=== PATIENT | female | born 1975 | race Caucasian/White ===

== ENCOUNTER 2020-11-20 15:30 | Emergency (ER) | payer OTHER, SELFPAY ==
[2020-11-20 15:38] VITALS: BP 145/106; PULSE 95; RESP 23; TEMP 36.7; O2SAT 100
--- NOTE | 2020-11-20 15:44 | ECG_ITS ---
Measurements Intervals [place] Rate: 88 P: 71 NC: 132 QRS: 75 QRSD: 86 T: 71 QT: 373 QTc: 452 Interpretive Statements SINUS RHYTHM BORDERLINE ST ABNORMALITY- INF/LAT LEADS BASELINE WANDER- V2 BORDERLINE ECG Electronically Signed On 11-20-2020 16:43:07 CDT by Pollo Whyte D.O.
--- NOTE | 2020-11-20 16:22 | ED.GENADULT ---
HPI - General Adult General Chief complaint: Recheck/Abnormal Lab/Rx Stated complaint: low potassium Time Seen by Provider: 11/20/20 15:36 Source: patient History of Present Illness HPI narrative: Patient is a 45 y/o female complaining of low potassium. She states that her potassium was 2.6 based on outpatient lab done earlier today. She was instructed by her jackerman to come to ED for evaluation. There is no known factors making it better or worse. She states that her thyroid medication was recently changed from Synthroid to Levoxyl and back to Synthroid. She also has been losing weight. Related Data Allergies Allergy/AdvReac Type Severity Reaction Status Date / Time artificial food coloring Allergy Rash Uncoded 11/20/20 15:45 Review of Systems Constitutional: Constitutional: Denies chills, Denies fever(s), Denies headache(s), Denies weakness and Reports weight loss Eyes: Eyes: Denies blurry vision ENT: Denies headache(s) and Denies neck pain Cardiovascular: Cardiovascular: Denies chest pain and Denies dyspnea Respiratory: Respiratory: Denies cough and Denies dyspnea Gastrointestinal: Gastrointestinal: Denies abdominal pain, Denies diarrhea, Denies nausea and Denies vomiting Genitourinary: Genitourinary: Denies hematuria and Denies dysuria Musculoskeletal: Musculoskeletal: Denies back pain and Denies neck pain Neurologic: Denies headache(s) and Denies weakness [facility] Social History Social History Gender identity (if verbalized by the patient): Female Exam Const: General: no acute distress and well developed Orientation/consciousness: oriented to person, oriented to place, oriented to time and patient oriented x3 HENMT: Head: normocephalic Ears: external ears normal General nose exam: Normal external nose present Eyes: General: appearance normal, both eyes and all related structures Conjunctivae: conjunctivae normal Neck: Neck: normal visual inspection and full ROM Chest: Chest palpation & inspection: normal inspection of the chest and no tenderness Resp: Effort & Inspection: normal respiratory effort Auscultation: clear to auscultation bilaterally Cardio: Rate: regular rate Rhythm: regular rhythm GI: GI Palp: No abdominal tenderness and Yes Soft to palpation Skin: General skin exam: normal color and turgor normal Neuro: General: oriented to person, oriented to place, oriented to time and patient oriented x3 Cognition (Neuro): normal cognition Extrem: General: normal to inspection, full ROM and no pedal edema Psych: Appearance: grossly normal Mental Status: mental status grossly normal Affect: normal affect Course Vital Signs Vital signs: Vital Signs Temperature 36.7 C 11/20/20 15:38 Pulse Rate 95 11/20/20 15:38 Respiratory Rate 23 H 11/20/20 15:38 Blood Pressure 145/106 H 11/20/20 15:38 Pulse Oximetry 100 11/20/20 15:38 Temperature 36.7 C 11/20/20 15:38 Pulse Rate 102 H 11/20/20 20:57 Respiratory Rate 22 H 11/20/20 20:57 Blood Pressure 124/88 11/20/20 20:57 Pulse Oximetry 99 11/20/20 20:57 Medical Decision Making Vital Signs Vital Signs: Vital Signs Temperature 36.7 C 11/20/20 15:38 Pulse Rate 95 11/20/20 15:38 Respiratory Rate 23 H 11/20/20 15:38 Blood Pressure 145/106 H 11/20/20 15:38 Pulse Oximetry 100 11/20/20 15:38 Temperature 36.7 C 11/20/20 15:38 Pulse Rate 102 H 11/20/20 20:57 Respiratory Rate 22 H 11/20/20 20:57 Blood Pressure 124/88 11/20/20 20:57 Pulse Oximetry 99 11/20/20 20:57 Lab Data Result diagrams: 11/20/20 16:22 11/20/20 19:14 Labs: Lab Results 11/20/20 11/20/20 11/20/20 Range/Units 16:22 16:22 16:22 WBC 6.2 (4.5-10.0) K/mm3 RBC 4.31 (4.2-5.4) M/mm3 Hgb 14.5 (12.0-15.0) g/dL Hct 40.3 (37.0-47.0) % MCV 93.5 (80-100) fl MCH 33.6 (26-34) pg MCHC 36.0 (32-36) g
[2020-11-20 16:28] LABS: Basophils Percent Auto 0.6 % (0.2-1.2); Eosinophils Percent Auto 0.5 % (0-4.4); Hematocrit 40.3 % (37.0-47.0); Hemoglobin 14.5 g/dL (12.0-15.0); Immature Granulocyte Absolute 0.01 K/mm3 (0.00-0.031); Immature Granulocyte Percent A 0.2 % (0-0.5); Lymphocytes Absolute Auto 2.34 K/mm3 (0.9-3.2); Lymphocytes Percent Auto 37.9 % (18.3-44.2); Mean Corpuscular Hemoglobin 33.6 pg (26-34); Mean Corpuscular Volume 93.5 fl (80-100); Mean Platelet Volume 9.2 fl (7.4-10.4); Monocytes Absolute Auto 0.5 K/mm3 (0.1-0.6); Monocytes Percent Auto 7.6 % (2.6-8.5); Neutrophils Absolute Auto 3.3 K/mm3 (1.3-6.7); Neutrophils Percent Auto 53.2 % (45.5-73.1); Platelet Count Result 275 k/mm3 (150-375); Red Blood Count 4.31 M/mm3 (4.2-5.4); Red Cell Distribution Width 11.6 % (11.5-14.5); White Blood Count 6.2 K/mm3 (4.5-10.0)
[2020-11-20 16:47] LABS: Alanine Aminotransferase 32 U/L (4-35); Albumin Level 4.5 g/dL (3.5-5.1); Alkaline Phosphatase 47 U/L (38-126); Anion Gap 9 mmol/L (8-16); Aspartate Amino Transferase 41 U/L (14-36); Bilirubin,Total 0.6 mg/dL (0.2-1.3); Blood Urea Nitrogen 4 mg/dL (7-17); Calcium 9.6 mg/dL (8.4-10.2); Carbon Dioxide 34 mmol/L (22-30); Chloride 93 mmol/L (98-107); Estimated CRCL calculation 70 ml/min; Estimated Glomerular Filt Rate > 60; Glucose 112 mg/dL (65-105); Potassium 2.8 mmol/L (3.4-5.0); Sodium 136 mmol/L (137-145)
[2020-11-20 16:55] LABS: Add Urine Microscopic? NO; Appearance Urine Clear (Clear); Bilirubin Urine Negative (Negative); Blood Urine Negative (Negative); Color Urine Straw (Yellow); Glucose Urine UA Negative (Negative); Ketones Urine Negative (Negative); Leukocyte Esterase Ur Negative LEU/UL (Negative); Nitrate Urine Negative (Negative); Protein Urine Negative (Negative); Specific Grav Ur 1.005 (1.001-1.035); Urobilinogen Urine Negative mg/dL (<2.0)
[2020-11-20 17:06] VITALS: BP 142/101; PULSE 93; RESP 17; O2SAT 97
[2020-11-20] MEDS: POTASSIUM CHLORIDE 20 MEQ TABLET 40 MEQ PO ×2 (17:06→20:56)
[2020-11-20] MEDS: KCL 20 MEQ/SW 100 ML 100 ML 50 MEQ IVPB (17:06)
[2020-11-20] MEDS: SODIUM CHLORIDE 0.9% IV 1,000 ML 350 ML (17:21)
[2020-11-20 17:45] LABS: Thyroid Stimulating Hormone 0.091 uIU/mL (0.465-4.680)
[2020-11-20 18:47] VITALS: BP 131/94; PULSE 95; RESP 17; O2SAT 100
--- NOTE | 2020-11-20 19:14 | PC.NURSE ---
Report given to Nicholas LOCKETT at bedside.
[2020-11-20 19:25] LABS: Potassium 3.1 mmol/L (3.4-5.0)
[2020-11-20 20:57] VITALS: BP 124/88; PULSE 102; RESP 22; O2SAT 99
== END 2020-11-20 21:19 | disposition home or self-care (01) ==
PROVIDERS: Emergency Provider Emergency Medicine
DX: E87.6 Hypokalemia (principal); R94.31 Abnormal electrocardiogram [ECG] [EKG]
CPT/HCPCS: 36415; 80053; 81003; 84132; 84443; 85025; 93005; 96365; 96366; 99284; A9270; J3480; J7030